=== PATIENT | female | born 2000 | race Two or more races ===

== ENCOUNTER 2024-09-01 16:13 | Emergency (ER) | payer BC ==
[~2024-09-01] VITALS: Ht 160 cm; Wt 61.8 kg
[2024-09-01] MEDS ORDERED: ALBU8HFA INH (18:54)
[2024-09-01 19:06] VITALS: BP 114/72; PULSE 90; RESP 20; TEMP 99; O2SAT 98
== END 2024-09-01 19:07 | disposition home or self-care (01) ==
LOC: ER 16:14
DX: J06.9 Acute upper respiratory infection, unspecified (principal); R07.89 Other chest pain
CPT/HCPCS: 71046; 99283

== ENCOUNTER 2025-01-29 17:46 | Emergency (ER) | payer BC ==
[~2025-01-29] VITALS: Ht 160 cm; Wt 60.7 kg
[~2025-01-29 17:46] MED LIST: ALBU8HFA INH
[2025-01-29 18:28] LABS: ALANINE AMINOTRANSFERASE 12 U/L (12-78); ALBUMIN 4.2 G/DL (3.4-5.0); ALBUMIN/GLOBULIN RATIO 1.2 (1.1-1.5); ALKALINE PHOSPHATASE 37 IU/L (46-116); ANION GAP 10 (8-16); ASPARTATE AMINO TRANSFERASE 7 U/L (10-37); BILIRUBIN,TOTAL 0.5 MG/DL (0.1-1.0); BLOOD UREA NITROGEN 9 MG/DL (7-18); BUN/CREATININE RATIO 11.4 (10.0-20.0); CALCIUM 8.8 MG/DL (8.5-10.1); CHLORIDE 105 MMOL/L (99-107); CREATININE 0.79 MG/DL (0.40-0.90); GLUCOSE 78 MG/DL (70-104); LIPASE 32 U/L (16-77); POTASSIUM 3.8 MMOL/L (3.5-5.1); SODIUM 143 MMOL/L (135-145); TOTAL CARBON DIOXIDE 28.3 MMOL/L (24-32); TOTAL PROTEIN 7.6 G/DL (6.4-8.2); eCRCL 92 ML/MIN; eGFR > 90 ML/MIN
[2025-01-29 18:31] LABS: URINE HCG NEGATIVE (NEG)
[2025-01-29 18:35] LABS: BASOPHILS % (AUTO) 0.6 % (0-1); EOSINOPHILS # (AUTO) 0.2 X10'3 (0-0.9); HEMATOCRIT 40.6 % (35.0-45.0); HEMOGLOBIN 13.4 g/dl (12.0-16.0); LYMPHOCYTES # (AUTO) 1.1 X10'3 (1.1-4.8); LYMPHOCYTES % (AUTO) 20.7 % (21-51); MEAN CORPUSCULAR HEMOGLOBIN 29.9 PG (27.0-31.0); MEAN CORPUSCULAR HGB CONC 33.1 g/dL (33.0-36.5); MEAN CORPUSCULAR VOLUME 90.3 FL (78-98); MEAN PLATELET VOLUME 8.8 FL (7.4-10.4); MONOCYTES # (AUTO) 0.4 X10'3 (0-0.9); NEUTROPHILS # (AUTO) 3.6 X10'3 (1.8-7.7); NEUTROPHILS % (AUTO) 67.7 % (42-75); PLATELET COUNT 227 X10'3 (140-440); RED CELL DISTRIBUTION WIDTH 13.6 % (11.5-14.5); WHITE BLOOD COUNT 5.3 X10'3 (4.5-11.0)
[2025-01-29 18:36] LABS: BILIRUBIN,URINE NEGATIVE (Neg); CLARITY,URINE CLEAR (Clear); COLOR,URINE YELLOW (Yellow); GLUCOSE, URINE NEGATIVE (Neg); KETONES,URINE NEGATIVE (Neg); LEUKOCYTE ESTERASE ,URINE NEGATIVE (Neg); NITRITES, URINE NEGATIVE (Neg); OCCULT BLOOD,URINE LARGE (Neg); PH,URINE 6.5 (4.8-8.0); PROTEIN,URINE NEGATIVE (Neg); UROBILINOGEN,URINE 0.2 E.U/dL (0.2-1.0)
[2025-01-29 18:44] LABS: UA COLLECTION TYPE CLN CATCH MIDSTREAM
[2025-01-29 18:57] LABS: SQUAMOUS EPITHELIAL CELL,UR MODERATE /LPF (FEW)
[2025-01-29 18:58] LABS: RBC,URINE 20-50 /HPF (0-2)
[2025-01-29 18:59] LABS: BACTERIA,URINE FEW /HPF (Neg); WBC,URINE 0-4 /HPF (0-4)
--- NOTE | 2025-01-29 19:42 | Physician Documentation ---
History of Present Illness Chief Complaint: Abdominal Pain Stated Complaint: ABDOMINAL PAIN Time Seen by MD: 19:41 Mode of Arrival: POV, Ambulatory HPI This 24-year-old female who presents to the emergency department today reporting a history of what is thought to be IBS along with acid reflux symptoms. She notes that she is currently on an antibiotic that causes gastric irritation. S he endorses some bloody stools, and has had this for a long time. She was previously living in [place], and did request a referral to GI, but ultimately moved before she ended up having the colonoscopy. She has had an upper endoscopy several months ago, this was normal. She denies dizziness, lightheadedness, chills, fever, vomiting. She does endorse nausea. Medication Reconciliation Allergies: Coded Allergies: adhesive tape (Unverified Allergy, Unknown, 01/29/25) latex (Unverified Allergy, Unknown, 01/29/25) Scheduled Pantoprazole Sodium (PROTONIX tablet), 1 TAB PO DAILY Sucralfate (Carafate), 1 TAB PO Q6H Scheduled PRN Ondansetron 8mg ODT (Ondansetron Odt), 1 TAB PO TID PRN for nausea/vomiting albuterol inhaler (Pro-Air Inhaler), 2 PUFFS INH Q4HPRN PRN for wheezing Review of Systems ROS As stated above in the HPI, otherwise all systems are reviewed and negative. Physical Exam Vital Signs: Temperature: 98.4, Source: Oral, Heart Rate: 71, Respiratory Rate: 16, BP: 112/80, Pulse Oximetry: 100, Weight: 60.700 Oxygen Flow Rate: 0 Physical Exam General: Alert, no apparent distress. HEENT: PERRL, EOMI, no injection, moist mucous membranes. Neck: Full range of motion. Respiratory: Lungs clear, no respiratory distress. Chest: No accessory muscle use. Cardiovascular: Regular rate and rhythm, no murmurs. Gastrointestinal: Soft,mildly TTP upper abd, nondistended. Bowels sounds present. Extremities: Normal range of motion, no deformity. Neurologic: Oriented x4. Psychiatric: Normal mood and affect. Skin: Normal color, warm and dry. No edema, no ecchymosis. Progress Results/Orders Results/Orders Vital Signs 01/29/25 01/29/25 01/29/25 17:47 19:31 19:34 Temp 99.0 98.4 Pulse 72 71 Resp 16 16 16 B/P (MAP) 116/78 112/80 (91) Pulse Ox 100 100 O2 Flow Rate 0 0 Laboratory Tests Test 01/29/25 17:52 01/29/25 18:03 Urine Specimen Description Cln catch midstream Urine Color Yellow Urine Clarity Clear Urine pH 6.5 Urine Specific [place] 1.010 Urine Protein Negative Urine Glucose (UA) Negative Urine Ketones Negative Urine Occult Blood Large H Urine Nitrite Negative Urine Bilirubin Negative Urine Urobilinogen 0.2 Urine Leukocyte Esterase Negative Urine RBC 20-50 Urine WBC 0-4 Urine Squamous Epithelial Cells Moderate Urine Bacteria Few Urine Culture Indicated Not ind Volume Urine Centrifuged 10 ml Urine HCG, Qualitative Negative Urine Comment White Blood Count 5.3 Red Blood Count 4.50 Hemoglobin 13.4 Hematocrit 40.6 Mean Corpuscular Volume 90.3 Mean Corpuscular Hemoglobin 29.9 Mean Corpuscular Hemoglobin Concent 33.1 Red Cell Distribution Width 13.6 Platelet Count 227 Mean Platelet Volume 8.8 Neutrophils (%) (Auto) 67.7 Lymphocytes (%) (Auto) 20.7 L Monocytes (%) (Auto) 8.0 Eosinophils (%) (Auto) 3.0 Basophils (%) (Auto) 0.6 Neutrophils # (Auto) 3.6 Lymphocytes # (Auto) 1.1 Monocytes # (Auto) 0.4 Eosinophils # (Auto) 0.2 Basophils # (Auto) 0.0 CBC Comment Sodium Level 143 Potassium Level 3.8 Chloride Level 105 Carbon Dioxide Level 28.3 Anion Gap 10 Blood Urea Nitrogen 9 Creatinine 0.79 Estimated GFR/1.73 m2 > 90 BUN/Creatinine Ratio 11.4 Glucose Level 78 Calcium Level 8.8 Total Bilirubin 0.5 Aspartate Amino Transf (AST/SGOT) 7 L Alanine Aminotransferase (ALT/SGPT) 12 Alkaline Phosphatase 37 L Total Protein 7.6 Albumin 4.2 Globulin 3.4 Albumin/Globulin Ratio 1.2 Lipase 32 Chemistry Comments Medical Decision Making Additional Comments This is a well-appearing 24-year-old female who presents due to concerns for ep igastric pain accompanied by bloody stools. These are longstanding issues, and she has had an upper endoscopy. She has been taking Carafate that she was given previously, but is almost out. She requests a refill on this. She denies any dizziness or lightheadedness, chills or fever. She does endorse nausea but no vomiting. Her main reason for presenting here today was that she is unable to get him with the primary care provider any time soon, and is aware that she needs to see a GI specialist due to her bloody stools. Her labs were stable. Her vital signs were stable. Her pain was mild. It was considered appropriate to have her treat herself as an outpatient with pantoprazole 40 mg daily, Carafate 1 g q.i.d., and give her ondansetron as needed for nausea. Discussed with her that she would need to return if worse, otherwise it was appropriate to wait for a primary care provider appointment and request a referral to GI for a colonoscopy. Departure Time of Disposition: 19:50 Impression: Primary Impression: Bloody stool Additional Impression: Epigastric pain Condition: Stable Discharge Instructions: Bloody Diarrhea, Gastritis, Adult Additional Instructions: Your labs look good: Normal liver enzymes, kidney function, and no anemia. Take the prescribed pantoprazole, Carafate, and use the ondansetron as needed for nausea. Find a primary care provider when you are able to do so, and request a referral to GI. Please certainly return to the ER if your worse at any time, such as with severe pain, fever over 101, any other worsening symptoms. Referrals: NO PRIMARY CARE PROVIDER (PCP) Prescriptions Ondansetron 8mg ODT (Ondansetron Odt) 8 Mg Tab.rapdis 1 TAB PO TID PRN for nausea/vomiting, #10 TAB Prov: CASANDRA HUTSON NP 01/29/25 Pantoprazole Sodium (PROTONIX tablet) 40 Mg Tablet.dr 1 TAB PO DAILY for 30 Days, #30 TAB 0 Refills Prov: CASANDRA HUTSON NP 01/29/25 Sucralfate (Carafate) 1 Gram Tablet 1 TAB PO Q6H for 30 Days, #120 TAB 0 Refills Prov: CASANDRA HUTSON NP 01/29/25 Education Educated: Patient Educated regarding: diagnosis, treatment, prognosis, need for follow up Signature Scribe Signature: no scribe Attestation: The note accurately reflects work and decisions made by me.Casandra Lockett NP 01/29/25 19:57 CASANDRA HUTSON NP Jan 29, 2025 19:42
[2025-01-29] MEDS ORDERED: ONDA-245 PO (19:52)
[2025-01-29] MEDS ORDERED: PANT-47 PO (19:52)
[2025-01-29] MEDS ORDERED: SUCR1TAB34 PO (19:52)
[2025-01-29 20:13] VITALS: BP 124/80; PULSE 80; RESP 18; TEMP 97.8; O2SAT 99
== END 2025-01-29 20:15 | disposition home or self-care (01) ==
LOC: ER 17:46
DX: R10.13 Epigastric pain (principal); K92.1 Melena; Z91.040 Latex allergy status; Z91.048 Other nonmedicinal substance allergy status
CPT/HCPCS: 36415; 80053; 81001; 81025; 83690; 85025; 99283